=== PATIENT | male | born 1945 | race Caucasian/White ===

== ENCOUNTER 2025-02-07 12:53 | Outpatient (CLI) | payer MEDICARE, OTHER ==
[~2025-02-07 12:53] MED LIST: ALBU90AE3 IH; BUME1TAB8 PO; CETI10TA14 PO; CITA20TA26 PO; DILT240C47 PO; FLUT9.9S BOTHNARES; HYDR25TA5 PO; LISI10TA27 PO
[2025-02-07 13:53] VITALS: PULSE 82; RESP 14; O2SAT 94
--- NOTE | 2025-02-10 14:12 | PROCEDURE NOTE - Respiratory ---
Procedure Note-Respiratory Providers to CC Copies To 1: MIMI DOWNEY MD; AMBER ROBLEDO Procedure Name: This is a spirometry study dated February 07, 2025. Spirometry measurements: Both the forced vital capacity and the FEV1 measurements are normal. The FEV1 ratio is borderline elevated. The flow rate measurements are excellent. Bronchodilator was not administered as part of the study. Conclusion: Normal spirometry study. We have no previous studies for comparison. BOBO ROSARIO MD Feb 10, 2025 14:12
== END 2025-02-07 23:59 | disposition home or self-care (01) ==
LOC: RT 12:53
PROVIDERS: ATTEND Family Medicine
DX: R06.2 Wheezing (principal)
CPT/HCPCS: 94010; 94760